=== PATIENT | male | born 1980 | race Caucasian/White ===

== ENCOUNTER 2017-07-05 19:51 | Emergency (ER) | payer SELFPAY ==
[~2017-07-05] VITALS: Ht 170.2 cm; Wt 68.3 kg
[2017-07-05 19:55] VITALS: BP 111/75
== END 2017-07-05 21:32 | disposition home or self-care (01) ==
LOC: ED 21:20
DX: S29.012A Strain of muscle and tendon of back wall of thorax, initial encounter (principal); S39.012A Strain of muscle, fascia and tendon of lower back, initial encounter; S20.211A Contusion of right front wall of thorax, initial encounter; V43.01XA Car driver injured in collision with sport utility vehicle in nontraffic accident, initial encounter; Y93.89 Activity, other specified; Y92.89 Other specified places as the place of occurrence of the external cause; Y99.8 Other external cause status
CPT/HCPCS: 71045; 72050; 72072; 72110; 99284